=== PATIENT | female | born 1975 | race African-American/Black ===

== ENCOUNTER 2021-11-22 10:13 | Emergency (ER) | payer OTHER ==
[~2021-11-22] VITALS: Ht 170.2 cm; Wt 80.0 kg
[2021-11-22] MEDS ORDERED: KETOROLAC 30MG/ML VIAL IM ONE (10:45)
[2021-11-22] MEDS ORDERED: NAPR-1176 MT (12:09)
[2021-11-22 12:14] VITALS: BP 127/85
== END 2021-11-22 12:15 | disposition home or self-care (01) ==
LOC: ER 10:13
DX: M62.830 Muscle spasm of back (principal)
CPT/HCPCS: 96372; 99283; J1885